=== PATIENT | male | born 1980 | race Two or more races ===

== ENCOUNTER 2020-06-23 21:13 | Emergency (ER) | payer OTHER | END 2020-06-23 22:22 | disposition left against medical advice (07) | LOC: ER 21:23 | DX: R10.9 Unspecified abdominal pain (principal); Z53.21 Procedure and treatment not carried out due to patient leaving prior to being seen by health care provider ==

== ENCOUNTER 2024-11-29 16:51 | Emergency (ER) | payer OTHER ==
[~2024-11-29] VITALS: Ht 170.2 cm; Wt 105.6 kg
[2024-11-29 16:52] VITALS: BP 148/97; PULSE 111; RESP 16; TEMP 98.4; O2SAT 95
[2024-11-29] MEDS ORDERED: ACET500T58 PO (18:30)
[2024-11-29] MEDS ORDERED: CYCL-837 PO (18:30)
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
--- NOTE | 2024-11-29 18:54 | DVH ---
CLINICAL INDICATION: LUMBAR BACK PAIN TECHNIQUE: 2 radiographic views of the lumbar spine were obtained. Comparison: None FINDINGS/IMPRESSION: Hepatomegaly There are no compressed vertebra There is no spondylolisthesis Degenerative disc changes are noted at L5-S1. There appears to be mild compression superior endplate of L1 age indeterminate. There are no prior studies for comparison. There appears to be no displacement.
--- NOTE | 2024-11-29 19:06 | DVH ---
Exam: CT HEAD WITHOUT CONTRAST History: HEADACHE Technique: [address] images through the posterior fossa and the supratentorial compart ment were acquired without contrast and imaged using soft tissue and bone algorithms. RADIATION DOSE: DLP 1104.15 mGy.cm; CTDI vol 61.34 mGy. Comparison: None Findings: There is no evidence of an intracranial hemorrhage, acute large vessel infarct, mass effect, or midli ne shift. The calvarium, orbits, paranasal sinuses, sella, middle ears, and mastoids are unremarkable. The superficial soft tissues are within normal limits. Impression: 1. No acute intracranial abnormality.
--- NOTE | 2024-11-29 19:25 | DVH ---
EXAM: CT CERVICAL WITHOUT CONTRAST INDICATION: NECK PAIN EXAM DATE: 11/29/2024 06:30 PM COMPARISON: None TECHNIQUE: Multiple axial CT images of the cervical spine were obtained using bone algorithm. Axial a nd coronal reformatting was done. Bone and soft tissue windows were reviewed. Radiation Dose Information: CT Dose: CTDI volume is 23.3 mGy. Dose-length product is 634.41 mGy*cm Findings: There is no evidence of an acute fracture or spondylolisthesis. The vertebral body heights are well-m aintained. The craniocervical junction and dens are intact. C5/C6 disc osteophyte complex with mild spinal canal stenosis. There is flattening of the cervical lordosis. The thyroid gland is unremarkable. The lung apices demonstrate no acute abnormality. The paraspinal a nd neck soft tissues appear within normal limits. Impression: 1. No evidence of an acute fracture. 2. C5/C6 disc osteophyte complex with mild spinal canal stenosis. If symptoms persist or worsen, edenilson mmend MRI for further evaluation. 3. Straightening of the cervical lordosis which may be positional versus muscle spasm.
== END 2024-11-29 19:35 | disposition home or self-care (01) ==
LOC: ER 16:51
DX: S16.1XXA Strain of muscle, fascia and tendon at neck level, initial encounter (principal); S39.012A Strain of muscle, fascia and tendon of lower back, initial encounter; S09.8XXA Other specified injuries of head, initial encounter; V89.2XXA Person injured in unspecified motor-vehicle accident, traffic, initial encounter; Y93.I9 Activity, other involving external motion; Y92.488 Other paved roadways as the place of occurrence of the external cause; Y99.8 Other external cause status
CPT/HCPCS: 70450; 72100; 72125